=== PATIENT | male | born 1945 | race Caucasian/White ===

== ENCOUNTER 2017-06-18 23:16 | Inpatient (IN) | payer OTHER, MEDICAID ==
[~2017-06-18] VITALS: Ht 172.7 cm; Wt 107.7 kg
[~2017-06-18 23:16] MED LIST: ASPI-231 PO; ESCI10TA53 PO; FURO40TA PO; HYDR-2595; LEVO125T7 PO; LEVO200I5 PO; LIS10T PO; LORA-653; METO100T12 PO; METO25TA5 PO; NOR10T PO; PAR20T PO; POTA20IN2 PO; POTASSIUM PO; TIZA4CAP7 PO; TIZA4TAB3; ZOLP12.564 PO; [UNRECOGNIZED DRUG - CODE] PO
[2017-06-19 01:20] LABS: Basophils # (auto) 0.1 uL; Basophils % (auto) 1.1 % (0.0-2.0); Eosinophils # (auto) 0.2 uL; Eosinophils % (auto) 3.3 % (0.0-7.0); Hematocrit 38.4 % (41.0-53.0); Lymphocytes # (auto) 1.1 uL; Lymphocytes % (auto) 17.4 % (10.0-50.0); Mean Corpuscular Hemoglobin 31.3 pg (28.0-32.0); Mean Corpuscular Volume 92.1 fL (80.0-100.0); Monocytes # (auto) 0.5 uL; Monocytes % (auto) 8.6 % (0.0-12.0); Neutrophils # (auto) 4.2 uL; Neutrophils % (auto) 69.6 % (37.0-80.0); Platelet Count (auto) 295 10^3/uL (140-450); Red Blood Cells 4.16 10^6/uL (4.5-5.90); Red Cell Distribution Width 17.1 % (11.8-14.3)
[2017-06-19 01:32] LABS: INR 1.01 (0.9-1.15)
[2017-06-19 01:40] LABS: Chloride 98 mmol/L (98-107); Potassium 3.4 mmol/L (3.5-5.1); Sodium 136 mmol/L (136-145)
[2017-06-19 01:43] LABS: Alanine Aminotransferase 24 U/L (16-61); Albumin 3.9 g/dL (3.4-5.0); Anion Gap 11 (5-15); Aspartate Aminotransferase 42 U/L (15-37); BUN/Creatinine Ratio 10.4; Blood Urea Nitrogen 28 mg/dL (7-18); Carbon Dioxide 27 mmol/L (21-32); GFR African American 30 mL/min; GFR Non-African American 25 mL/min; Glucose 106 mg/dL (74-106); Magnesium 2.5 mg/dL (1.6-2.6)
[2017-06-19 01:47] LABS: Alkaline Phosphatase 62 U/L (45-117); Bilirubin, Total 0.5 mg/dL (0.2-1.0)
[2017-06-19 02:53] LABS: Urine Bacteria NONE SEEN /hpf (None Seen); Urine Blood TRACE /uL (Negative); Urine Hyaline Cast MOD /lpf (0 - 2); Urine Mucus FEW (None Seen); Urine Specific Gravity 1.018 (1.001-1.035); Urine WBC 2 /hpf (0 - 3)
[2017-06-19 03:06] LABS: Alcohol, Urine < 3.0 mg/dL (0-5); Amphetamine Screen, Urine POSITIVE (NEGATIVE); Barbiturate Scree,Urine NEGATIVE (NEGATIVE); Benzodiazephine Screen, Urine NEGATIVE (NEGATIVE); Cannabinoid Screen, Urine NEGATIVE (NEGATIVE); Cocaine Screen, Urine NEGATIVE (NEGATIVE); Opiate Scree,Urine NEGATIVE (NEGATIVE); Phencyclidine Screen, Urine NEGATIVE (NEGATIVE)
[2017-06-19] MEDS ORDERED: HYDROcodone-ACET 10/325MG TAB PO ONE (03:45)
[2017-06-19] MEDS ORDERED: ONDANSETRON HCL 4 MG/2 ML VIAL IV PRN (09:45)
[2017-06-19] MEDS ORDERED: cloNIDine HCL 0.1 MG TAB PO PRN (09:45)
[2017-06-19] MEDS ORDERED: TEMAZEPAM 15 MG CAP PO PRN (09:45)
[2017-06-19] MEDS ORDERED: DOCUSATE SOD 100 MG CAP PO PRN (09:45)
[2017-06-19] MEDS ORDERED: ACETAMINOPHEN 325 MG TAB PO PRN (09:45)
[2017-06-19] MEDS ORDERED: NITROGLYCERIN 0.4 MG SL TAB SL PRN (09:45)
[2017-06-19] MEDS ORDERED: MORPHINE SULFATE 4 MG/ML SYR/VIAL IV PRN ×2 (09:45)
[2017-06-19] MEDS ORDERED: POTASSIUM CHLORIDE 8 MEQ TAB PO ONE (09:45)
[2017-06-19] MEDS ORDERED: POTASSIUM CHL 20 Meq TABLET PO ONE (10:30)
[2017-06-19 10:42] LABS: Urine Bacteria NONE SEEN /hpf (None Seen); Urine Blood TRACE /uL (Negative); Urine Specific Gravity 1.015 (1.001-1.035); Urine WBC <1 /hpf (0 - 3)
[2017-06-19] MEDS ORDERED: DEXTROSE (50%) 50ML SYRG IV PRN (11:00)
[2017-06-19] MEDS: FAMOTIDINE 20 MG TAB PO SCH (11:12)
[2017-06-19] MEDS: LEVOTHYROXINE SODIUM 50 MCG TAB PO SCH (11:12)
[2017-06-19] MEDS: LISINOPRIL 5 MG TAB PO SCH (11:12)
[2017-06-19] MEDS: MULTIPLE VITAMIN TAB PO SCH (11:12)
[2017-06-19] MEDS: ASPirin-EC 81 mg tab PO SCH (11:12)
[2017-06-19] MEDS: ENOXAPARIN SOD 30 MG/0.3 ML SYRINGE SC SCH (11:13)
[2017-06-19] MEDS: HYDROcodone-ACET 5/325MG TAB PO PRN ×2 (11:15→20:30)
[2017-06-19] MEDS: InsuLIN REG 1unit/0.01ml Soln (100units/ml) SC SCH ×3 (11:30→21:52)
[2017-06-19] MEDS: ACCU-CHEK COMFORT CURVE STRIP VI SCH ×4 (11:30→21:52)
[2017-06-19 11:31] LABS: Phosphorus 3.8 mg/dL (2.5-4.90); Uric Acid 7.6 mg/dL (3.5-7.2)
[2017-06-19 12:44] LABS: Albumin 3.9 g/dL (3.4-5.0); Calcium 9.2 mg/dL (8.5-10.1)
[2017-06-19 12:51] LABS: Bilirubin, Total 0.6 mg/dL (0.2-1.0); Total Protein 8.1 g/dL (6.4-8.2)
[2017-06-19 17:00] VITALS: BP 131/94
[2017-06-19] MEDS: amLODIPine BESYLATE 5 MG TAB PO SCH (17:14)
[2017-06-19] MEDS: SODIUM CHLOR 0.9% PF (SALINE LOCK) 10ML VIAL IV SCH ×2 (18:11→21:52)
[2017-06-19] MEDS ORDERED: LORazepam 2MG/ML-1ML VIAL IV PRN (21:00)
[2017-06-19] MEDS: ATORVASTATIN 20 MG TAB PO SCH (21:52)
[2017-06-19 21:53] VITALS: BP 121/70
[2017-06-20 05:35] VITALS: BP 110/75
[2017-06-20] MEDS: SODIUM CHLOR 0.9% PF (SALINE LOCK) 10ML VIAL IV SCH ×3 (06:00→22:05)
[2017-06-20] MEDS: InsuLIN REG 1unit/0.01ml Soln (100units/ml) SC SCH ×4 (07:00→22:00)
[2017-06-20 07:16] LABS: Basophils # (auto) 0.1 uL; Basophils % (auto) 1.3 % (0.0-2.0); Eosinophils # (auto) 0.2 uL; Eosinophils % (auto) 4.6 % (0.0-7.0); Hematocrit 39.8 % (41.0-53.0); Lymphocytes # (auto) 0.9 uL; Lymphocytes % (auto) 19.5 % (10.0-50.0); Mean Corpuscular Hemoglobin 30.7 pg (28.0-32.0); Mean Corpuscular Hgb Conc. 32.6 g/dL (32.0-36.0); Mean Corpuscular Volume 94.2 fL (80.0-100.0); Monocytes # (auto) 0.4 uL; Monocytes % (auto) 9.2 % (0.0-12.0); Neutrophils # (auto) 3.1 uL; Neutrophils % (auto) 65.4 % (37.0-80.0); Nucleated Red Blood Cells % 0.1 %; Platelet Count (auto) 290 10^3/uL (140-450); Red Blood Cells 4.22 10^6/uL (4.5-5.90); Red Cell Distribution Width 17.6 % (11.8-14.3); White Blood Cell 4.7 10^3/uL (4.4-10.8)
[2017-06-20] MEDS: LEVOTHYROXINE SODIUM 50 MCG TAB PO SCH (07:21)
[2017-06-20] MEDS: ACCU-CHEK COMFORT CURVE STRIP VI SCH ×4 (07:21→22:02)
[2017-06-20 07:42] LABS: Alanine Aminotransferase 21 U/L (16-61); Albumin 3.4 g/dL (3.4-5.0); Alkaline Phosphatase 57 U/L (45-117); Anion Gap 8 (5-15); Aspartate Aminotransferase 35 U/L (15-37); BUN/Creatinine Ratio 12.2; Bilirubin, Total 0.7 mg/dL (0.2-1.0); Blood Urea Nitrogen 24 mg/dL (7-18); Calcium 8.3 mg/dL (8.5-10.1); Carbon Dioxide 29 mmol/L (21-32); Chloride 101 mmol/L (98-107); Cholesterol 187 mg/dL (< 200); GFR African American 43 mL/min; GFR Non-African American 36 mL/min; Glucose 84 mg/dL (74-106); HDL Cholesterol 59 mg/dL (40-59); LDL Cholesterol 117 mg/dL (< 100); Potassium 3.5 mmol/L (3.5-5.1); Sodium 138 mmol/L (136-145); Total Protein 7.4 g/dL (6.4-8.2); Triglycerides 97 mg/dL (< 150)
[2017-06-20 08:00] VITALS: BP 130/88
[2017-06-20 09:00] VITALS: BP 130/88
[2017-06-20] MEDS: ASPirin-EC 81 mg tab PO SCH (10:30)
[2017-06-20] MEDS: LISINOPRIL 5 MG TAB PO SCH (10:31)
[2017-06-20] MEDS: amLODIPine BESYLATE 5 MG TAB PO SCH (10:31)
[2017-06-20] MEDS: ENOXAPARIN SOD 30 MG/0.3 ML SYRINGE SC SCH (10:32)
[2017-06-20] MEDS: MULTIPLE VITAMIN TAB PO SCH (10:35)
[2017-06-20] MEDS: FAMOTIDINE 20 MG TAB PO SCH (10:35)
[2017-06-20 12:00] VITALS: BP 155/92
[2017-06-20] MEDS ORDERED: ADENOSINE 89 MG in GIVE UN-DILUTED 0 ML IV ONE (13:45)
[2017-06-20 14:53] VITALS: BP 139/90
[2017-06-20 22:00] VITALS: BP 124/78
[2017-06-20] MEDS: ATORVASTATIN 20 MG TAB PO SCH (22:05)
[2017-06-21 05:00] VITALS: BP 131/81
[2017-06-21] MEDS: SODIUM CHLOR 0.9% PF (SALINE LOCK) 10ML VIAL IV SCH ×2 (06:31→14:00)
[2017-06-21] MEDS: LEVOTHYROXINE SODIUM 50 MCG TAB PO SCH (06:31)
[2017-06-21] MEDS: InsuLIN REG 1unit/0.01ml Soln (100units/ml) SC SCH ×3 (06:32→17:00)
[2017-06-21] MEDS: ACCU-CHEK COMFORT CURVE STRIP VI SCH ×3 (06:32→17:00)
[2017-06-21 06:53] LABS: Albumin 3.5 g/dL (3.4-5.0); BUN/Creatinine Ratio 12.9; Calcium 8.6 mg/dL (8.5-10.1); Potassium 3.7 mmol/L (3.5-5.1)
[2017-06-21 06:56] LABS: Bilirubin, Total 0.6 mg/dL (0.2-1.0); Total Protein 7.4 g/dL (6.4-8.2)
[2017-06-21 09:00] VITALS: BP 129/77
[2017-06-21] MEDS: MULTIPLE VITAMIN TAB PO SCH (10:18)
[2017-06-21] MEDS: FAMOTIDINE 20 MG TAB PO SCH (10:18)
[2017-06-21] MEDS: ASPirin-EC 81 mg tab PO SCH (10:18)
[2017-06-21] MEDS: LISINOPRIL 5 MG TAB PO SCH (10:20)
[2017-06-21] MEDS: ENOXAPARIN SOD 30 MG/0.3 ML SYRINGE SC SCH (10:20)
[2017-06-21] MEDS: amLODIPine BESYLATE 5 MG TAB PO SCH (10:20)
[2017-06-21 10:59] VITALS: BP 110/58
[2017-06-21 12:53] VITALS: BP 116/59
[2017-06-21 15:28] VITALS: BP 116/59
[2017-06-26 13:59] LABS: Protein, Urine 28.8 mg/dL (0.0-11.9)
== END 2017-06-21 17:45 | disposition home or self-care (01) | DRG 64 ==
LOC: ER 23:16 → EDBD 23:16 → TELE 23:17 → TELE-WESTW 06-19 12:32 → TELE-EAST 06-19 13:43
PROVIDERS: ADMIT Internal Medicine; ATTEND Internal Medicine
DX: I63.9 Cerebral infarction, unspecified (principal); N17.0 Acute kidney failure with tubular necrosis; G92 Toxic encephalopathy; E11.21 Type 2 diabetes mellitus with diabetic nephropathy; E11.22 Type 2 diabetes mellitus with diabetic chronic kidney disease; I49.5 Sick sinus syndrome; I13.0 Hypertensive heart and chronic kidney disease with heart failure and stage 1 through stage 4 chronic kidney disease, or unspecified chronic kidney disease; N18.4 Chronic kidney disease, stage 4 (severe); I50.9 Heart failure, unspecified; F03.90 Unspecified dementia, unspecified severity, without behavioral disturbance, psychotic disturbance, mood disturbance, and anxiety; J44.9 Chronic obstructive pulmonary disease, unspecified; Z86.73 Personal history of transient ischemic attack (TIA), and cerebral infarction without residual deficits; E87.6 Hypokalemia; F15.10 Other stimulant abuse, uncomplicated; D63.8 Anemia in other chronic diseases classified elsewhere; E03.9 Hypothyroidism, unspecified; E66.9 Obesity, unspecified; E78.5 Hyperlipidemia, unspecified; E86.0 Dehydration; F17.200 Nicotine dependence, unspecified, uncomplicated; F32.9 Major depressive disorder, single episode, unspecified; I25.10 Atherosclerotic heart disease of native coronary artery without angina pectoris; Z96.652 Presence of left artificial knee joint; M19.90 Unspecified osteoarthritis, unspecified site; I25.2 Old myocardial infarction; Z79.82 Long term (current) use of aspirin; Z79.899 Other long term (current) drug therapy; Z80.0 Family history of malignant neoplasm of digestive organs; Z81.8 Family history of other mental and behavioral disorders; Z91.14 Patient's other noncompliance with medication regimen; Z91.81 History of falling; Z95.5 Presence of coronary angioplasty implant and graft; Z68.36 Body mass index [BMI] 36.0-36.9, adult
CPT/HCPCS: 36415; 70450; 71045; 76775; 78452; 80053; 80061; 80307; 81001; 82306; 82570; 82962; 83036; 83605; 83735; 83880; 83970; 84100; 84156; 84300; 84443; 84484; 84550; 85025; 85610; 87040; 92610; 93005; 93017; 93306; 93886; 95819; 96372; 97163; J0153

== ENCOUNTER 2017-12-18 03:22 | Emergency (ER) | payer OTHER, MEDICAID ==
[~2017-12-18] VITALS: Ht 172.7 cm; Wt 104.8 kg
[2017-12-18 03:30] VITALS: BP 118/79
== END 2017-12-18 06:28 | disposition left against medical advice (07) ==
LOC: ER 03:24
DX: M54.5 Low back pain (principal); M25.562 Pain in left knee; M25.561 Pain in right knee; Z53.21 Procedure and treatment not carried out due to patient leaving prior to being seen by health care provider
CPT/HCPCS: 72131; 73560

== ENCOUNTER 2020-12-25 08:51 | Emergency (ER) | payer OTHER, MEDICAID ==
[~2020-12-25] VITALS: Ht 170.2 cm; Wt 90.7 kg
[~2020-12-25 08:51] MED LIST changes: +ESCI-28 PO; -ESCI10TA53 PO; +FURO1TAB31 PO; -FURO40TA PO; -LORA-653; +LORA0.5T19; -ZOLP12.564 PO; +ZOLP12.569 PO
[2020-12-25] MEDS ORDERED: SODIUM CHLORIDE 0.9% 1,000 ML IV ONE (09:00)
[2020-12-25] MEDS ORDERED: SODIUM CHLORIDE 0.9% 1,000 ML IVB ONE (09:00)
[2020-12-25 09:49] LABS: Basophils # (auto) 0.1 10 ^3/uL (0-0.2); Basophils % (auto) 1.4 % (0.0-2.0); Eosinophils # (auto) 0.1 10 ^3/uL (0-0.8); Eosinophils % (auto) 1.3 % (0.0-7.0); Hematocrit 41.3 % (41.0-53.0); Hemoglobin 13.5 g/dL (13.5-17.5); Lymphocytes # (auto) 0.7 10 ^3/uL (0.4-5.4); Mean Corpuscular Hemoglobin 31.2 pg (28.0-32.0); Mean Corpuscular Hgb Conc. 32.8 g/dL (32.0-36.0); Mean Corpuscular Volume 95.2 fL (80.0-100.0); Monocytes # (auto) 0.5 10 ^3/uL (0-1.3); Monocytes % (auto) 8.4 % (0.0-12.0); Neutrophils % (auto) 77.9 % (37.0-80.0); Red Blood Cells 4.34 10^6/uL (4.5-5.90); Red Cell Distribution Width 17.1 % (11.8-14.3); White Blood Cell 6.4 10^3/uL (4.4-10.8)
[2020-12-25 10:03] LABS: Albumin 3.2 g/dL (3.4-5.0); Anion Gap 6 (5-15); Blood Urea Nitrogen 35 mg/dL (7-18); Calcium 8.9 mg/dL (8.5-10.1); Carbon Dioxide 32 mmol/L (21-32); Chloride 100 mmol/L (98-107); Glucose 78 mg/dL (74-106); Potassium 3.4 mmol/L (3.5-5.1); Sodium 138 mmol/L (136-145)
[2020-12-25 10:09] LABS: Alanine Aminotransferase 14 U/L (16-61); Alkaline Phosphatase 71 U/L (45-117); Aspartate Aminotransferase 30 U/L (15-37); BUN/Creatinine Ratio 12.2; Bilirubin, Total 0.6 mg/dL (0.2-1.0); GFR African American 27 mL/min; GFR Non-African American 23 mL/min; Total Protein 8.4 g/dL (6.4-8.2)
[2020-12-25 22:01] LABS: Urine Bacteria NONE SEEN /hpf (None Seen); Urine Blood TRACE /uL (Negative); Urine Specific Gravity 1.017 (1.001-1.035); Urine WBC 1 /hpf (0 - 3)
[2020-12-25 22:12] LABS: Amphetamine Screen, Urine POSITIVE (NEGATIVE); Barbiturate Scree,Urine NEGATIVE (NEGATIVE); Benzodiazephine Screen, Urine NEGATIVE (NEGATIVE); Cannabinoid Screen, Urine NEGATIVE (NEGATIVE); Cocaine Screen, Urine NEGATIVE (NEGATIVE); Opiate Scree,Urine NEGATIVE (NEGATIVE); Phencyclidine Screen, Urine NEGATIVE (NEGATIVE)
[2020-12-26] MEDS ORDERED: POTASSIUM EFFERVESENT TAB 25 MEQ PO ONE (10:15)
[2020-12-27 14:55] VITALS: BP 123/82
== END 2020-12-27 17:11 | disposition home or self-care (01) ==
LOC: ER 08:51 → EDBD 08:51 → ER 12-27 17:11
DX: R53.1 Weakness (principal); E87.6 Hypokalemia; E44.1 Mild protein-calorie malnutrition; I13.0 Hypertensive heart and chronic kidney disease with heart failure and stage 1 through stage 4 chronic kidney disease, or unspecified chronic kidney disease; E11.22 Type 2 diabetes mellitus with diabetic chronic kidney disease; N18.9 Chronic kidney disease, unspecified; I25.10 Atherosclerotic heart disease of native coronary artery without angina pectoris; J44.9 Chronic obstructive pulmonary disease, unspecified; F03.90 Unspecified dementia, unspecified severity, without behavioral disturbance, psychotic disturbance, mood disturbance, and anxiety; I25.2 Old myocardial infarction; Z68.31 Body mass index [BMI] 31.0-31.9, adult; Z95.0 Presence of cardiac pacemaker; Z59.0 Homelessness; Z79.82 Long term (current) use of aspirin; Z79.899 Other long term (current) drug therapy; Z86.73 Personal history of transient ischemic attack (TIA), and cerebral infarction without residual deficits; Z98.890 Other specified postprocedural states
CPT/HCPCS: 36415; 70450; 71045; 80053; 80307; 81001; 83880; 84484; 85025; 93005; 96360

== ENCOUNTER 2021-02-04 00:19 | Emergency (ER) | payer OTHER, MEDICAID ==
[~2021-02-04] VITALS: Ht 172.7 cm; Wt 96.6 kg
[~2021-02-04 00:19] MED LIST changes: -ASPI-231 PO; +ASPI1TAB20 PO; -TIZA4TAB3; +TIZA4TAB7
[2021-02-04] MEDS ORDERED: hydrALAZINE HCL 10 MG TAB PO ONE (00:45)
[2021-02-04 01:01] LABS: Basophils # (auto) 0.1 10 ^3/uL (0-0.2); Basophils % (auto) 1.5 % (0.0-2.0); Eosinophils # (auto) 0.3 10 ^3/uL (0-0.8); Eosinophils % (auto) 6.8 % (0.0-7.0); Hematocrit 35.9 % (41.0-53.0); Lymphocytes # (auto) 0.8 10 ^3/uL (0.4-5.4); Lymphocytes % (auto) 17.5 % (10.0-50.0); Mean Corpuscular Hgb Conc. 33.3 g/dL (32.0-36.0); Mean Corpuscular Volume 93.2 fL (80.0-100.0); Monocytes # (auto) 0.6 10 ^3/uL (0-1.3); Monocytes % (auto) 11.7 % (0.0-12.0); Neutrophils % (auto) 62.5 % (37.0-80.0); Nucleated Red Blood Cells % 0.1 %; Red Blood Cells 3.85 10^6/uL (4.5-5.90); Red Cell Distribution Width 16.4 % (11.8-14.3); White Blood Cell 4.7 10^3/uL (4.4-10.8)
[2021-02-04 01:18] LABS: Alanine Aminotransferase 15 U/L (16-61); Albumin 3.1 g/dL (3.4-5.0); Anion Gap 8 (5-15); Aspartate Aminotransferase 21 U/L (15-37); BUN/Creatinine Ratio 14.8; Blood Urea Nitrogen 36 mg/dL (7-18); Calcium 8.6 mg/dL (8.5-10.1); Carbon Dioxide 30 mmol/L (21-32); Chloride 101 mmol/L (98-107); GFR African American 33 mL/min; GFR Non-African American 28 mL/min; Glucose 98 mg/dL (74-106); Magnesium 2.4 mg/dL (1.6-2.6); Potassium 3.1 mmol/L (3.5-5.1); Sodium 139 mmol/L (136-145)
[2021-02-04 01:19] LABS: INR 1.08 (0.9-1.15); Partial Thromboplastin Time 30.1 sec (23.6-33.0)
[2021-02-04 01:23] LABS: Alkaline Phosphatase 56 U/L (45-117); Bilirubin, Total 0.4 mg/dL (0.2-1.0); Total Protein 7.3 g/dL (6.4-8.2)
[2021-02-04 02:20] LABS: Urine Bacteria NONE SEEN /hpf (None Seen); Urine Blood TRACE /uL (Negative); Urine Specific Gravity 1.023 (1.001-1.035); Urine WBC 1 /hpf (0 - 3)
[2021-02-04 05:43] VITALS: BP 141/62
== END 2021-02-04 05:42 | disposition left against medical advice (07) ==
LOC: ER 00:19 → EDBD 00:19 → ER 05:42
DX: N43.3 Hydrocele, unspecified (principal); N50.812 Left testicular pain; R60.9 Edema, unspecified; I11.0 Hypertensive heart disease with heart failure; I50.9 Heart failure, unspecified; J44.9 Chronic obstructive pulmonary disease, unspecified; E11.9 Type 2 diabetes mellitus without complications; Z86.73 Personal history of transient ischemic attack (TIA), and cerebral infarction without residual deficits; Z53.29 Procedure and treatment not carried out because of patient's decision for other reasons
CPT/HCPCS: 36415; 71045; 76870; 80053; 81001; 83735; 83880; 84484; 85025; 85610; 85730